=== PATIENT | female | born 1995 | race Asian ===

== ENCOUNTER → 2018-10-08 | Outpatient (CLI) | payer OTHER | END | disposition home or self-care (01) | LOC: LAB 11:50 | PROVIDERS: ATTEND Nurse Practitioner | DX: Z02.1 Encounter for pre-employment examination (principal) | CPT/HCPCS: 86735; 86762; 86765; 86787 ==

== ENCOUNTER 2020-11-23 04:44 | Inpatient (IN) | payer MEDICAID, OTHER ==
[~2020-11-23] VITALS: Ht 160 cm; Wt 77.1 kg
[2020-11-23 06:56] LABS: Basophils # (auto) 0 10 ^3/uL (0-0.2); Eosinophils # (auto) 0.1 10 ^3/uL (0-0.8); Eosinophils % (auto) 1.1 % (0.0-7.0); Monocytes # (auto) 0.6 10 ^3/uL (0-1.3); Neutrophils % (auto) 68.5 % (37.0-80.0)
[2020-11-23 06:58] LABS: Basophils % (auto) 0.4 % (0.0-2.0); Hematocrit 38.5 % (36.0-46.0); Hemoglobin 12.7 g/dL (12.2-16.2); Lymphocytes # (auto) 1.9 10 ^3/uL (0.4-5.4); Lymphocytes % (auto) 22.5 % (10.0-50.0); Mean Corpuscular Hemoglobin 26.1 pg (28.0-32.0); Mean Corpuscular Volume 79.1 fL (80.0-100.0); Monocytes % (auto) 7.5 % (0.0-12.0); Neutrophils # (auto) 5.9 10 ^3/uL (1.6-8.6); Nucleated Red Blood Cells % 0.1 %; Platelet Count (auto) 306 10^3/uL (140-450); Red Blood Cells 4.87 10^6/uL (4.0-5.20); Red Cell Distribution Width 15.3 % (11.8-14.3); White Blood Cell 8.6 10^3/uL (4.4-10.8)
[2020-11-23 07:11] LABS: Albumin 3.6 g/dL (3.4-5.0); Anion Gap 6 (5-15); Blood Urea Nitrogen 15 mg/dL (7-18); Calcium 8.3 mg/dL (8.5-10.1); Carbon Dioxide 22 mmol/L (21-32); Chloride 113 mmol/L (98-107); Glucose 87 mg/dL (74-106); Magnesium 2.4 mg/dL (1.6-2.6); Sodium 141 mmol/L (136-145)
[2020-11-23 07:17] LABS: Alanine Aminotransferase 24 U/L (13-56); Alkaline Phosphatase 60 U/L (45-117); Aspartate Aminotransferase 16 U/L (15-37); BUN/Creatinine Ratio 22.7; Bilirubin, Total 0.4 mg/dL (0.2-1.0); GFR African American 138 mL/min; GFR Non-African American 114 mL/min; Total Protein 6.9 g/dL (6.4-8.2)
[2020-11-23 07:46] LABS: Partial Thromboplastin Time 25.7 sec (23.0-31.2)
[2020-11-23 10:25] LABS: Urine Bacteria NONE SEEN /hpf (None Seen); Urine Blood Negative /uL (Negative); Urine Specific Gravity 1.003 (1.001-1.035); Urine WBC 1 /hpf (0 - 5)
[2020-11-23] MEDS ORDERED: IOHEXOL 350 MG/ML 100ML IJ ONE (11:10)
[2020-11-23 12:30] VITALS: BP 130/82
[2020-11-23] MEDS ORDERED: hydrALAZINE HCL 20 MG/ML VL IV PRN (12:45)
[2020-11-23] MEDS ORDERED: MORPHINE SULF INJ 2 MG/ML SYRINGE 1ML IV PRN (12:45)
[2020-11-23] MEDS ORDERED: NITROGLYCERIN 0.4 MG SL TAB SL PRN (12:45)
[2020-11-23] MEDS ORDERED: PROPRANOLOL HCL 20 MG TAB PO SCH (14:00)
[2020-11-24] MEDS ORDERED: PANTOPRAZOLE 40 MG TAB PO SCH (10:00)
== END 2020-11-23 14:30 | disposition left against medical advice (07) | DRG 58 ==
LOC: ER 04:44 → OVERFLOW 12:35 → UNDODEPER 14:39 → OVERFLOW 14:40
PROVIDERS: ADMIT Internal Medicine; ATTEND Internal Medicine
DX: G93.2 Benign intracranial hypertension (principal); E66.9 Obesity, unspecified; F17.200 Nicotine dependence, unspecified, uncomplicated; I10 Essential (primary) hypertension; Z53.29 Procedure and treatment not carried out because of patient's decision for other reasons; H53.8 Other visual disturbances; Z68.30 Body mass index [BMI] 30.0-30.9, adult; Z82.3 Family history of stroke; Z82.49 Family history of ischemic heart disease and other diseases of the circulatory system; Z90.49 Acquired absence of other specified parts of digestive tract; Z20.822 Contact with and (suspected) exposure to COVID-19
CPT/HCPCS: 36415; 70450; 71045; 71275; 80053; 81001; 83735; 83880; 84484; 84702; 85025; 85379; 85610; 85730; 87426; 93970; G0378

== ENCOUNTER 2020-12-03 06:16 | Inpatient (IN) | payer MEDICAID ==
[~2020-12-03] VITALS: Ht 160 cm; Wt 76.4 kg
[2020-12-03 08:09] LABS: Basophils # (auto) 0 10 ^3/uL (0-0.2); Basophils % (auto) 0.3 % (0.0-2.0); Eosinophils # (auto) 0.1 10 ^3/uL (0-0.8); Eosinophils % (auto) 1.1 % (0.0-7.0); Hemoglobin 13.4 g/dL (12.2-16.2); Lymphocytes # (auto) 2.1 10 ^3/uL (0.4-5.4); Monocytes # (auto) 0.5 10 ^3/uL (0-1.3); Neutrophils # (auto) 4.4 10 ^3/uL (1.6-8.6); White Blood Cell 7.1 10^3/uL (4.4-10.8)
[2020-12-03 08:10] LABS: Hematocrit 40.8 % (36.0-46.0); Lymphocytes % (auto) 29.2 % (10.0-50.0); Mean Corpuscular Hemoglobin 26.1 pg (28.0-32.0); Mean Corpuscular Hgb Conc. 32.8 g/dL (32.0-36.0); Mean Corpuscular Volume 79.6 fL (80.0-100.0); Monocytes % (auto) 7.2 % (0.0-12.0); Neutrophils % (auto) 62.2 % (37.0-80.0); Nucleated Red Blood Cells % 0.1 %; Red Blood Cells 5.12 10^6/uL (4.0-5.20); Red Cell Distribution Width 15.5 % (11.8-14.3)
[2020-12-03 08:22] LABS: INR 1.04 (0.9-1.15); Partial Thromboplastin Time 27.3 sec (23.0-31.2)
[2020-12-03 08:36] LABS: Albumin 3.8 g/dL (3.4-5.0); Calcium 9.2 mg/dL (8.5-10.1); Potassium 3.7 mmol/L (3.5-5.1)
[2020-12-03 08:38] LABS: BUN/Creatinine Ratio 17.1; Bilirubin, Total 0.3 mg/dL (0.2-1.0); Total Protein 7.4 g/dL (6.4-8.2)
[2020-12-03 10:05] LABS: Urine Bacteria NONE SEEN /hpf (None Seen); Urine Blood Negative /uL (Negative); Urine Specific Gravity 1.006 (1.001-1.035); Urine WBC 2 /hpf (0 - 5)
[2020-12-03] MEDS ORDERED: HYDR12.56 PO (10:34)
[2020-12-03] MEDS ORDERED: PROP60CA34 PO (10:34)
[2020-12-03] MEDS ORDERED: HYDROcodone-ACET 5/325MG TAB PO PRN (13:00)
[2020-12-03] MEDS ORDERED: MORPHINE SULFATE INJECTION 2 MG/ML SYRG IV PRN ×2 (13:00)
[2020-12-03] MEDS ORDERED: ONDANSETRON HCL 4 MG/2 ML VIAL IV PRN (13:00)
[2020-12-03] MEDS ORDERED: NITROGLYCERIN 0.4 MG SL TAB SL PRN (13:00)
[2020-12-03 14:31] VITALS: BP 128/71
[2020-12-03] MEDS ORDERED: LORazepam 2MG/ML-1ML VIAL IV PRN (19:00)
[2020-12-03] MEDS ORDERED: IOHEXOL 350 MG/ML 100ML IJ ONE (19:27)
[2020-12-03 20:15] LABS: Protein, CSF 38.9 mg/dL (15-45)
[2020-12-03] MEDS: SODIUM CHLORIDE 0.9% 1,000 ML IV SCH (20:17)
[2020-12-03] MEDS: ACETAMINOPHEN 325 MG TAB PO PRN (20:31)
[2020-12-03 20:35] LABS: CSF White Blood Cells 3.33 CUMM (0-5)
[2020-12-03] MEDS: acetaZOLAMIDE 250 MG TAB PO SCH (21:30)
[2020-12-03] MEDS: PROPRANOLOL 60 MG PO SCH (21:31)
[2020-12-03 22:00] VITALS: BP 129/76
[2020-12-04] MEDS: SODIUM CHLORIDE 0.9% 1,000 ML IV SCH ×3 (05:09→21:37)
[2020-12-04 05:25] VITALS: BP 100/60
[2020-12-04 08:36] VITALS: BP 114/69
[2020-12-04] MEDS: acetaZOLAMIDE 250 MG TAB PO SCH ×2 (10:20→21:36)
[2020-12-04] MEDS: ACETAMINOPHEN 325 MG TAB PO PRN (10:20)
[2020-12-04] MEDS ORDERED: GADOTERATE MEG 10 MMOL/20ml INJ (0.5MMOL/ml) IV ONE (11:44)
[2020-12-04 12:36] VITALS: BP 117/74
[2020-12-04 16:37] VITALS: BP 130/88
[2020-12-04] MEDS: PROPRANOLOL 60 MG PO SCH (21:38)
[2020-12-04 22:39] VITALS: BP 137/91
[2020-12-05] MEDS: SODIUM CHLORIDE 0.9% 1,000 ML IV SCH ×2 (04:50→10:45)
[2020-12-05 05:18] VITALS: BP 122/71
[2020-12-05] MEDS: ACETAMINOPHEN 325 MG TAB PO PRN (07:28)
[2020-12-05 09:00] VITALS: BP 133/80
[2020-12-05] MEDS: acetaZOLAMIDE 250 MG TAB PO SCH (10:00)
[2020-12-05 11:06] VITALS: BP 133/80
[2020-12-05 13:00] VITALS: BP 133/83
== END 2020-12-05 15:10 | disposition home or self-care (01) | DRG 58 ==
LOC: ER 06:16 → OVERFLOW 12:51 → EAST 14:33
PROVIDERS: ADMIT Internal Medicine; ATTEND Internal Medicine
PROC: 009U3ZX Drainage of Spinal Canal, Percutaneous Approach, Diagnostic (ICD-10-PCS; principal; 2020-12-03)
DX: G93.2 Benign intracranial hypertension (principal); E66.01 Morbid (severe) obesity due to excess calories; I10 Essential (primary) hypertension; Z20.822 Contact with and (suspected) exposure to COVID-19; E11.9 Type 2 diabetes mellitus without complications; Z82.3 Family history of stroke; Z82.49 Family history of ischemic heart disease and other diseases of the circulatory system; Z90.49 Acquired absence of other specified parts of digestive tract; Z68.29 Body mass index [BMI] 29.0-29.9, adult
CPT/HCPCS: 36415; 70545; 70553; 80053; 81001; 81025; 82945; 84157; 85025; 85610; 85730; 87426; 89051; 96360; G0378